=== PATIENT | female | born 1935 | race Caucasian/White ===

== ENCOUNTER 2020-06-15 13:31 | Emergency (ER) | payer MEDICARE, OTHER ==
[~2020-06-15 13:31] MED LIST: AMARYL1 MG PO; ASPIRIN EC81 MG PO; CLOPIDOGREL75 MG PO; COUMADIN 2.5MG2.5 MG PO; COUMADIN5 MG PO; ELAVIL 10 MG TA10 MG PO; ELIQUIS 5 MG TAB5 MG PO; ELIQUIS5 MG PO; GLIPIZIDE ER5 MG PO; ISOSORBIDE MONO30 MG PO; JANUVIA 100 MG100 MG PO; JANUVIA100 MG PO; LANTUS100 UNIT/1 SQ; LEVAQUIN TAB 5500 MG PO; LIPITOR TAB 2020 MG PO; LODINE CAP 300300 MG PO; MACROBID 100 M100 MG PO; MEGA BIOTIN10000 MCG PO; MESTINON60 MG PO; NORCO 5-325 TA1 EACH PO; NORVASC 5 MG TAB5 MG PO; NORVASC5 MG PO; OMEPRAZOLE20 M1 PO; OMNICEF 300 MG300 MG PO; PERCOCET 5/325 T1 EA PO; PRAVASTATIN SOD40 MG PO; PREDNISONE 5 MG5 MG PO; PREDNISONE5 MG PO; PRINIVIL20 MG PO; PROTONIX 40 MG40 M1 PO; PYRIDIUM200 MG PO; SOTALOL80 MG PO; SYNTHROID75 MCG PO; TYLENOL WITH C1 EACH PO; VITAMIN D12 PO; ZESTRIL/PRINIVI10 MG PO; ZOFRAN ODT4 MG PO
[2020-12-08] MEDS ORDERED: ELIQUIS2.5 MG PO (11:06)
[2020-12-08] MEDS ORDERED: ISOSORBIDE MONO30 MG PO (11:12)
[2020-12-08] MEDS ORDERED: LISINOPRIL10 MG PO (11:15)
[2020-12-08] MEDS ORDERED: PREDNISONE2.5 MG PO ×2 (11:18→11:19)
[2020-12-08] MEDS ORDERED: TRAMADOL HCL50 MG PO (11:28)
[2020-12-08] MEDS ORDERED: LEXAPRO TAB 1010 MG PO (11:31)
== END 2020-06-15 16:49 | disposition home or self-care (01) ==
LOC: ER1 13:31
DX: S90.31XA Contusion of right foot, initial encounter (principal); W20.8XXA Other cause of strike by thrown, projected or falling object, initial encounter
CPT/HCPCS: 73590; 73610; 73630; 93971; 99284

== ENCOUNTER → 2020-12-08 | Outpatient (CLI) | payer MEDICARE, OTHER ==
[~2020-12-08] MED LIST changes: +ELIQUIS2.5 MG PO; +LEXAPRO TAB 1010 MG PO; +LISINOPRIL10 MG PO; +PREDNISONE2.5 MG PO; +TRAMADOL HCL50 MG PO
[2020-12-08 10:51] LABS: HEMOGLOBIN 12.3 gm/dl (12.3-15.3); RED BLOOD COUNT 4.13 M/UL (4.00-5.10); WHITE BLOOD COUNT 6.5 K/UL (4.5-11.0)
[2020-12-08 11:06] LABS: BUN/CREATININE RATIO 15 (0-10)
== END ==
LOC: OPSV2 10:00 → EDSTATUS 10:00 → OPSV2 10:02
PROVIDERS: Orthopaedic Surgery
DX: Z01.818 Encounter for other preprocedural examination (principal); M17.11 Unilateral primary osteoarthritis, right knee; I44.7 Left bundle-branch block, unspecified; R94.31 Abnormal electrocardiogram [ECG] [EKG]; I25.10 Atherosclerotic heart disease of native coronary artery without angina pectoris; I10 Essential (primary) hypertension; E11.9 Type 2 diabetes mellitus without complications
CPT/HCPCS: 36415; 80048; 81001; 83036; 85027; 87081; 93005

== ENCOUNTER → 2021-01-08 | Outpatient (CLI) | payer MEDICARE, OTHER ==
[2021-01-08 16:28] LABS: HEMOGLOBIN 12.7 gm/dl (12.3-15.3); RED BLOOD COUNT 4.29 M/UL (4.00-5.10); WHITE BLOOD COUNT 8.9 K/UL (4.5-11.0)
[2021-01-08 16:44] LABS: BUN/CREATININE RATIO 15 (0-10)
[2021-01-09 08:13] LABS: VITAMIN D, 25-HYDROXY 33.8 ng/mL (30.0-100.0)
== END ==
LOC: LAB 15:03
PROVIDERS: Family Medicine
DX: E87.1 Hypo-osmolality and hyponatremia (principal); R19.7 Diarrhea, unspecified; R53.83 Other fatigue; E55.9 Vitamin D deficiency, unspecified; D51.9 Vitamin B12 deficiency anemia, unspecified
CPT/HCPCS: 36415; 80048; 82607; 83921; 84443; 85025

== ENCOUNTER → 2021-09-29 | Outpatient (CLI) | payer MEDICARE, OTHER ==
[~2021-09-29] MED LIST changes: +ARICEPT5 MG PO; +LOW DOSE ASPIRI81 MG PO; +TYLENOL EXTRA500 MG PO; +VITAMIN D PO
[2021-09-29 14:07] LABS: HEMOGLOBIN 12.4 gm/dl (12.3-15.3); RED BLOOD COUNT 4.35 M/UL (4.00-5.10); WHITE BLOOD COUNT 7.2 K/UL (4.5-11.0)
[2021-09-29 14:24] LABS: BUN/CREATININE RATIO 18 (0-10)
== END ==
LOC: EDSTATUS 12:30 → OPSV2 12:30
PROVIDERS: Orthopaedic Surgery
DX: Z01.818 Encounter for other preprocedural examination (principal); M17.11 Unilateral primary osteoarthritis, right knee
CPT/HCPCS: 80048; 83036; 85025; 93005

== ENCOUNTER → 2021-10-11 | Outpatient (CLI) | payer MEDICARE, OTHER ==
[~2021-10-11] MED LIST changes: +ELIQUIS 2.5 MG2.5 MG PO; -GLIPIZIDE ER5 MG PO; +GLIPIZIDE5 MG PO; +HYDROCODON-ACE1 EAC2 PO; -VITAMIN D PO; +VITAMIN D325 MCG PO
[2021-10-11 12:20] LABS: BUN/CREATININE RATIO 24 (0-10)
== END ==
LOC: LAB 11:27
PROVIDERS: Orthopaedic Surgery
DX: Z01.812 Encounter for preprocedural laboratory examination (principal)
CPT/HCPCS: 36415; 80048; 86850; 86900; 86901

== ENCOUNTER 2021-10-12 05:22 | Day surgery (SDC) | payer MEDICARE, OTHER ==
[~2021-10-12] VITALS: Ht 154.9 cm; Wt 64.4 kg
[~2021-10-12 05:22] MED LIST changes: -ELIQUIS 2.5 MG2.5 MG PO; -HYDROCODON-ACE1 EAC2 PO
[2021-10-12] MEDS ORDERED: HYDROCODON-ACE1 EAC2 PO (10:49)
[2021-10-12] MEDS ORDERED: JANUVIA100 MG PO (12:03)
--- NOTE | 2021-10-12 15:25 | NUR ---
PATIENT RECEIVED FROM PACU BILATERAL PEDAL PULSES ARE PALPABLE, TOES ARE PINK AND WARM WITH BRISK CAP REFILL AND WARM TO TOUCH, SHE IS ABLE TO MOVE ALL. INCENTIVE SPIROMETRY AT 1000ML X 10
[2021-10-12 19:09] LABS: HEMOGLOBIN 9.8 gm/dl (12.3-15.3); RED BLOOD COUNT 3.34 M/UL (4.00-5.10); WHITE BLOOD COUNT 10.2 K/UL (4.5-11.0)
[2021-10-12 19:24] LABS: BUN/CREATININE RATIO 21 (0-10)
[2021-10-13 03:30] LABS: RED BLOOD COUNT 3.1 M/UL (4.00-5.10); WHITE BLOOD COUNT 12.6 K/UL (4.5-11.0)
[2021-10-13 04:15] LABS: BUN/CREATININE RATIO 18 (0-10)
[2021-10-13] MEDS ORDERED: ELIQUIS 2.5 MG2.5 MG PO (12:53)
== END 2021-10-13 16:00 | disposition home or self-care (01) ==
LOC: OR 05:22 → CDU 05:22 → UNDOADMIN 05:22 → CDU 13:26 → M/S 13:26 → EDSTATUS 15:00 → M/S 10-13 16:00 → OR 10-13 16:00
PROVIDERS: Internal Medicine; Orthopaedic Surgery
DX: M17.11 Unilateral primary osteoarthritis, right knee (principal); I10 Essential (primary) hypertension; I25.10 Atherosclerotic heart disease of native coronary artery without angina pectoris; E78.5 Hyperlipidemia, unspecified; K21.9 Gastro-esophageal reflux disease without esophagitis; E11.9 Type 2 diabetes mellitus without complications; I48.91 Unspecified atrial fibrillation; E03.9 Hypothyroidism, unspecified; G70.00 Myasthenia gravis without (acute) exacerbation; I25.2 Old myocardial infarction; F41.9 Anxiety disorder, unspecified; Z88.0 Allergy status to penicillin; Z88.1 Allergy status to other antibiotic agents; Z91.040 Latex allergy status; Z91.041 Radiographic dye allergy status; Z79.01 Long term (current) use of anticoagulants; Z79.82 Long term (current) use of aspirin; Z79.84 Long term (current) use of oral hypoglycemic drugs; Z79.899 Other long term (current) drug therapy
CPT/HCPCS: 36415; 73560; 80048; 82962; 85027; 86850; 86900; 86901; 97110; 97110-GP-CQ; 97116-GP-CQ; 97162; 97166; 97530; 97535; C1776; J0690; J1100; J1170; J2001; J2250; J2274; J2405; J2704; J3010; J3370; J7030; J7120

== ENCOUNTER 2021-10-15 15:09 | Emergency (ER) | payer MEDICARE, OTHER ==
[~2021-10-15 15:09] MED LIST changes: +ELIQUIS 2.5 MG2.5 MG PO; +HYDROCODON-ACE1 EAC2 PO
[2021-10-15 17:07] LABS: HEMOGLOBIN 7.8 gm/dl (12.3-15.3); RED BLOOD COUNT 2.66 M/UL (4.00-5.10); WHITE BLOOD COUNT 10.2 K/UL (4.5-11.0)
[2021-10-15 17:32] LABS: BUN/CREATININE RATIO 21 (0-10)
== END 2021-10-16 00:40 | disposition home or self-care (01) ==
LOC: ER1 15:09
PROVIDERS: Physician Assistant
DX: R53.83 Other fatigue (principal); G89.18 Other acute postprocedural pain; E87.1 Hypo-osmolality and hyponatremia; D64.9 Anemia, unspecified; E11.9 Type 2 diabetes mellitus without complications; I11.9 Hypertensive heart disease without heart failure; Z88.0 Allergy status to penicillin
CPT/HCPCS: 80053; 85025; 86850; 86900; 86901; 99284

== ENCOUNTER 2022-01-23 09:40 | Emergency (ER) | payer MEDICARE, OTHER ==
[2022-01-23 11:15] LABS: HEMOGLOBIN 12.2 gm/dl (12.3-15.3); RED BLOOD COUNT 4.24 M/UL (4.00-5.10); WHITE BLOOD COUNT 18.1 K/UL (4.5-11.0)
[2022-01-23 11:50] LABS: BUN/CREATININE RATIO 16 (0-10)
[2022-01-23] MEDS ORDERED: CEPHALEXIN500 MG PO (14:14)
== END 2022-01-23 14:50 | disposition home or self-care (01) ==
LOC: ER1 09:40
PROVIDERS: Emergency Medicine
DX: N39.0 Urinary tract infection, site not specified (principal); R53.1 Weakness; R55 Syncope and collapse; I10 Essential (primary) hypertension; E11.9 Type 2 diabetes mellitus without complications; Z86.73 Personal history of transient ischemic attack (TIA), and cerebral infarction without residual deficits; Z79.01 Long term (current) use of anticoagulants; Z95.0 Presence of cardiac pacemaker
CPT/HCPCS: 70450; 71045; 72125; 80053; 81001; 82550; 82553; 83735; 84484; 85025; 96374; 99285; J0696